=== PATIENT | female | born 1950 ===

== ENCOUNTER → 2017-04-11 | Outpatient (CLI) | payer MEDICARE ==
[~2017-04-11] MED LIST: ASPIRIN LO-DOSE81 MG PO; BRILINTA90 MG PO; CALCIUM 600 +1 EAC4 PO; LEVOTHROID(SYN75 MCG PO; LEXAPRO20 MG PO; MULTI VITAMIN1 EACH PO; NAPROSYN500 MG PO; PLAVIX75 MG PO; PREMARIN0.625 MG PO; PRILOSEC OTC20 MG PO; PRILOSEC20 MG PO; TENORMIN25 MG PO; ULTRAM50 MG PO; VASOTEC2.5 MG PO; WELLBUTRIN75 MG PO; XANAX0.25 MG PO
[2017-04-11 14:02] LABS: ALBUMIN 4.1 gm/dL (3.5-5.0); CALCIUM 9.2 mg/dL (8.5-10.5); PHOSPHORUS 2.8 mg/dL (2.5-4.9)
== END | disposition disaster alternative care site (69) ==
LOC: LCNC 13:45
PROVIDERS: Internal Medicine Interventional Cardiology
DX: R07.9 Chest pain, unspecified (principal)